=== PATIENT | male | born 1975 | race Caucasian/White ===

== ENCOUNTER 2020-06-22 15:13 | Emergency (ER) | payer MEDICAID ==
[~2020-06-22] VITALS: Ht 172.7 cm; Wt 93.2 kg
--- NOTE | 2020-06-22 15:43 | NUR ---
pt having pressure in front of head, feelings of euphoria, and clear drainage coming out of both nostrils. Dr. Lyon updated, CT scan ordered.
[2020-06-22 18:22] VITALS: BP 147/92
[2020-06-23] MEDS ORDERED: GADOTERATE MEGLUMINE 7.5 MMOL/15 ML VIAL IV ONE (09:23)
== END 2020-06-22 18:35 | disposition home or self-care (01) ==
LOC: ER 15:14
DX: T17.1XXA Foreign body in nostril, initial encounter (principal); R51.9 Headache, unspecified; X58.XXXA Exposure to other specified factors, initial encounter; Y93.89 Activity, other specified; Y92.89 Other specified places as the place of occurrence of the external cause; Y99.8 Other external cause status
CPT/HCPCS: 70450; 70553; 99285; A9575

== ENCOUNTER 2020-11-04 14:03 | Emergency (ER) | payer MEDICAID ==
[~2020-11-04] VITALS: Ht 172.7 cm; Wt 100.0 kg
[2020-11-04 14:09] VITALS: BP 131/90
[2020-11-04] MEDS ORDERED: ketorolac trometh. 30mg/ml inj. IM ONE (14:35)
[2020-11-04] MEDS ORDERED: METH4TAB81 PO (15:22)
== END 2020-11-04 15:50 | disposition home or self-care (01) ==
LOC: ER 14:04
DX: S46.911A Strain of unspecified muscle, fascia and tendon at shoulder and upper arm level, right arm, initial encounter (principal); M25.511 Pain in right shoulder; Z79.899 Other long term (current) drug therapy; X58.XXXA Exposure to other specified factors, initial encounter; Y93.89 Activity, other specified; Y92.89 Other specified places as the place of occurrence of the external cause; Y99.8 Other external cause status
CPT/HCPCS: 73030; 96372; 99283; J1885

== ENCOUNTER 2021-01-31 13:16 | Emergency (ER) | payer MEDICAID ==
[~2021-01-31] VITALS: Ht 172.7 cm; Wt 93.2 kg
[~2021-01-31 13:16] MED LIST: METH4TAB81 PO
[2021-01-31 13:21] VITALS: BP 155/89
[2021-01-31] MEDS ORDERED: TETanus/Pertussis (Acell)/Diphther VAC/PF (Tdap-Adult) 0.5ml syringe IMVAC ONE (13:25)
[2021-01-31] MEDS ORDERED: LIDOcaine 1% W/epiNEPHrine 1:200,000 10ml vial IJ ONE (13:25)
[2021-01-31] MEDS ORDERED: CEPH-585 PO (14:45)
== END 2021-01-31 15:22 | disposition home or self-care (01) ==
LOC: ER 13:16
DX: S91.312A Laceration without foreign body, left foot, initial encounter (principal); Z79.2 Long term (current) use of antibiotics; Z79.899 Other long term (current) drug therapy; W29.3XXA Contact with powered garden and outdoor hand tools and machinery, initial encounter; Y93.89 Activity, other specified; Y92.89 Other specified places as the place of occurrence of the external cause; Y99.8 Other external cause status
CPT/HCPCS: 73630; 90471; 90715; 99283

== ENCOUNTER 2024-02-03 12:48 | Emergency (ER) | payer MEDICAID, OTHER ==
[~2024-02-03] VITALS: Ht 175.3 cm; Wt 93.2 kg
[2024-02-03 13:07] VITALS: TEMP 97
[2024-02-03] MEDS: dexamethasone sod phosphate 10mg/ml inj IM STA (15:03)
[2024-02-03] MEDS: cyclobenzaprine 10mg tablet PO ONE (15:03)
[2024-02-03] MEDS: ketorolac trometh 30MG/ML vial 30 MG/ML VIAL IM ONE (15:03)
[2024-02-03] MEDS ORDERED: LIDO700A32 TOP (16:07)
[2024-02-03] MEDS ORDERED: CYCL-1 PO (16:07)
[2024-02-03 16:24] VITALS: BP 118/76; PULSE 76; RESP 16; O2SAT 98
== END 2024-02-03 16:26 | disposition home or self-care (01) ==
LOC: ER 12:49
DX: M54.2 Cervicalgia (principal); M54.50 Low back pain, unspecified; M54.6 Pain in thoracic spine; Z79.899 Other long term (current) drug therapy; V89.2XXA Person injured in unspecified motor-vehicle accident, traffic, initial encounter; Y93.89 Activity, other specified; Y92.89 Other specified places as the place of occurrence of the external cause; Y99.8 Other external cause status
CPT/HCPCS: 71046; 72040; 72070; 72100; 96372; 99284; J1100; J1885